=== PATIENT | female | born 1970 | race Caucasian/White ===

== ENCOUNTER 2018-10-15 07:56 | Emergency (ER) | payer MEDICAID, OTHER ==
[~2018-10-15] VITALS: Ht 167.6 cm; Wt 49.9 kg
[~2018-10-15 07:56] MED LIST: ALPR0.5T; GABA800T87; HYDR-1421; IBU800T
[2018-10-15 08:48] VITALS: BP 150/70
== END 2018-10-15 09:25 | disposition home or self-care (01) ==
LOC: EDBD 07:56 → ER 08:03
DX: S80.02XA Contusion of left knee, initial encounter (principal); S70.12XA Contusion of left thigh, initial encounter; S70.11XA Contusion of right thigh, initial encounter; F17.210 Nicotine dependence, cigarettes, uncomplicated; V43.52XA Car driver injured in collision with other type car in traffic accident, initial encounter; Y93.89 Activity, other specified; Y92.488 Other paved roadways as the place of occurrence of the external cause; Y99.8 Other external cause status
CPT/HCPCS: 73562